=== PATIENT | female | born 1975 | race Caucasian/White ===

== ENCOUNTER 2016-05-06 11:42 | Day surgery (SDC) | payer BC ==
[2016-04-27 09:42] VITALS: BMI 42.0
--- NOTE | 2016-04-27 10:10 | PAT Medication Instructions ---
Service Date Apr 27, 2016. Current Home Medication List Control Pills ( Control Pills), 1 TAB PO DAILY Omeprazole (Prilosec), 20 MG PO DAILY PRN for STOMACH Tramadol (Ultram), 50 MG PO Q8H PRN for Pain Medication Instructions For Your Scheduled Surgery - Check with surgeon for instructions: Control Pills ( Control Pills), 1 TAB PO DAILY - Take the following medications the morning of surgery with a sip of water: Omeprazole (Prilosec), 20 MG PO DAILY PRN for STOMACH Tramadol (Ultram), 50 MG PO Q8H PRN for Pain (okay to take up to 4 hours prior to surgery if needed) - Take the following medications as scheduled the night before surgery: Omeprazole (Prilosec), 20 MG PO DAILY PRN for STOMACH Tramadol (Ultram), 50 MG PO Q8H PRN for Pain (if needed) If you have any questions please call us at [phone] (Summer Quesada PA-C) or [phone] or [phone]
[2016-04-27 10:47] LABS: BASO % 0.4 %; BASO ABS # 0.03 K/uL (0-0.2); COMPLETE YES; EOS % 1.9 %; HEMATOCRIT 42.8 % (37-47); IG% 0.1 %; LYMPH % 25.1 %; LYMPH ABS # 2.03 K/uL (1.2-3.4); MEAN CELL VOLUME 84.9 fL (80-100); MEAN CORPUSCULAR HEMOGLOBIN 30.2 pg (25-34); MEAN CORPUSCULAR HGB CONC 35.5 g/dl (32-36); MEAN PLATELET VOLUME 10.1 fL (7.4-10.4); MONO % 6.2 %; NEUT % 66.3 %; PLATELET COUNT 216 K/uL (130-400); RED BLOOD COUNT 5.04 M/uL (4.2-5.4); WHITE BLOOD COUNT 8.08 K/uL (4.8-10.8)
--- NOTE | 2016-04-27 10:49 | DIAGNOSTIC IMAGING REPORT ---
CHEST PREADMISSION(PA/LAT) CLINICAL HISTORY: Preoperative evaluation. COMPARISON STUDY: No previous studies for comparison. FINDINGS: Lung volumes are normal. The lungs are clear. There is no pneumothorax or pleural effusion. Cardiac size is normal. Mediastinal contours are normal. There is no evidence of pulmonary edema. IMPRESSION: No acute cardiopulmonary findings. Electronically signed by: Francis Pina M.D. 04/27/2016 10:47 AM Dictated Date/Time: 04/27/2016 10:47 AM
[2016-04-27 10:58] LABS: PARTIAL THROMBOPLASTIN RATIO 1.1; PROTHROMBIN TIME (PATIENT) 10.2 SECONDS (9.0-12.0)
[2016-04-27 11:05] LABS: BUN/CREATININE RATIO 13.9 (10-20); CALCIUM 9.1 mg/dl (8.5-10.1); CREATININE 0.76 mg/dl (0.60-1.20); POTASSIUM 4.1 mmol/L (3.5-5.1)
--- NOTE | 2016-05-05 19:48 | HISTORY & PHYSICAL EXAMINATION ---
DATE OF ADMISSION: 05/06/2016 HISTORY AND PHYSICAL ADMISSION NOTE CHIEF COMPLAINT: Left biceps tendonitis. 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 She has been dealing with anterior shoulder pain for over 6 months. I have given her injections in the biceps tendon which is taken care of all of her pain, but unfortunately the pain continues to return. She is having trouble sleeping at night and having trouble doing simple daily activities because of her shoulder pain. She is also losing a little bit of range of motion. I got an MRI of her shoulder which showed mild glenohumeral arthritis and biceps tendinitis. She elected to proceed with arthroscopy. PAST MEDICAL HISTORY: Significant for diabetes, hypothyroidism, sports-related asthma. MEDICATIONS: Include tramadol and omeprazole. PAST SURGICAL HISTORY: For appendectomy and knee surgery. ALLERGIES: PENICILLIN. FAMILY HISTORY: Noncontributory. SOCIAL HISTORY: She is with one child. Rarely drinks. Remains active. REVIEW OF SYSTEMS: The patient complains of left shoulder pain. All other pertinent review of systems are negative. PHYSICAL EXAMINATION: GENERAL: She is awake, alert and oriented x3. She is in no apparent distress. She is very pleasant. HEENT: Pupils are equal, round and reactive to light. Extraocular movements intact. Oral mucosa is pink and moist. VITAL SIGNS: Regular rate per radial pulse. LUNGS: Jailene symmetrically bilaterally with no audible breath sounds. ABDOMEN: Soft, nontender, nondistended. MUSCULOSKELETAL: On physical examination shoulder actively she initially has 90 degrees of forward elevation but later in the exam, I can get up to 130 degrees. She uses scapulothoracic motion at end range. She has slight limitations throughout range of motion but she does not exam like an adhesive capsulitis. Most of the pain is located along the biceps tendon. She has no pain over the AC joint, mild pain over the subacromial space. She does have some pain over both the anterior and posterior glenohumeral joint lines. IMAGING DATA: MRI of the shoulder does show mild arthritis and some posterior glenoid wear. The rotator cuff is intact. There is a small paralabral cyst in the spinoglenoid notch; there is also mild arthritis of the AC joint. IMPRESSION: 1. Biceps tendinitis of the left shoulder. 2. Mild osteoarthritis of the left shoulder. PLAN: Will proceed with a left shoulder arthroscopy to include decompression, biceps tenotomy and a chondroplasty. Postoperatively, she will be placed in an arm sling and discharged to home on oral pain medications. RAIN
[~2016-05-06] VITALS: Ht 177.8 cm; Wt 132.7 kg
[~2016-05-06 11:42] MED LIST: ACETAMINOPHEN 500 MG TAB PO SCH; ATROPINE SULFATE 0.1 MG/ML 5ML SYR IV PRN; BCPILLS PO; CLINDAMYCIN 600 MG/54 ML D5W 54 ML IV SCH; EpHEDrine SULFATE INJ 50 MG/ML AMP IV PRN; FAMOTIDINE 20 MG TAB PO SCH; FENTANYL CITRATE INJ 50 MCG/1 ML 2 ML VIAL IV PRN; GABAPENTIN 300 MG CAP PO SCH; HYDROmorphone INJ 1 MG/ML SYR IV PRN; LACTATED RINGER'S 1000ML 1,000 ML IV SCH; LACTATED RINGER'S 1000ML IV SCH; ONDANSETRON INJ 2 MG/ML 2 ML VIAL IV PRN; PRLSR20 PO; ROPIVACAINE 0.5% 5 MG/ML 30 ML VIAL ONE; TRAM-10 PO
--- NOTE | 2016-05-06 11:53 | History & Physical Bridge Note ---
H&P Re-Evaluation Bridge Note: I have examined the patient, reviewed the History & Physical and in the interval since the performance of the History & Physical I have noted the following changes of clinical significance: No changes noted
[2016-05-06 12:15] VITALS: BP 154/75; PULSE 74; TEMP 37; O2SAT 97; Ht 177.8 cm; Wt 132.7 kg
[2016-05-06] MEDS ORDERED: MIDAZOLAM HCL 1 MG/ML 2ML VIAL ONE (12:34)
[2016-05-06] MEDS ORDERED: FENTANYL CITRATE INJ 50 MCG/1 ML 2 ML VIAL ONE ×2 (12:34→15:27)
[2016-05-06] MEDS ORDERED: SCOPOLAMINE 1.5 MG TDSY TD ONE (13:44)
[2016-05-06] MEDS ORDERED: SCOPOLAMINE 1.5 MG TDSY TD SCH (13:45)
[2016-05-06] MEDS ORDERED: LIDOCAINE HCL 2% 2 ML VIAL (20MG/ML) ONE (14:35)
[2016-05-06] MEDS ORDERED: ONDANSETRON INJ 2 MG/ML 2 ML VIAL ONE (14:35)
[2016-05-06] MEDS ORDERED: PROPOFOL IV EMULSION 10 MG/ML 20 ML VIAL IV ONE ×2 (14:35→15:00)
[2016-05-06] MEDS ORDERED: DEXAMETHASONE SOD INJ 4 MG/ML VIAL ONE (14:35)
[2016-05-06] MEDS ORDERED: GLYCOPYRROLATE INJ 0.2 MG/ML VIAL ONE (14:35)
[2016-05-06] MEDS ORDERED: METOCLOPRAMIDE HCL INJ 5 MG/ML 2 ML VIAL ONE (14:35)
[2016-05-06] MEDS ORDERED: NEOSTIGMINE METHYLSULFATE 5 MG/5 ML SYR ONE (14:35)
[2016-05-06] MEDS ORDERED: ROCURONIUM BROMIDE 10 MG/ML 5 ML VIAL ONE (14:35)
[2016-05-06] MEDS ORDERED: BUPIVACAINE/EPINEPHRINE 0.5% MPF 1:200,000 30 ML VIAL INJ ONE (15:31)
[2016-05-06] MEDS ORDERED: KETO10TA PO (15:48)
[2016-05-06] MEDS ORDERED: OXYC-57 PO (15:48)
[2016-05-06] MEDS ORDERED: SODIUM CHLORIDE 0.9% 1000ML 1,000 ML IV SCH (15:49)
--- NOTE | 2016-05-06 15:49 | Discharge Instructions ---
Discharge Instructions Admission Reason for Admission: Left Shoulder Pain, Biceps Tendinitis, Degenerativ Discharge Discharge Diagnosis / Problem: SAME ABOVE Discharge Goals Goal(s): Decrease discomfort, Improve function Activity Recommendations Activity Limitations: as noted below Lifting Limitations: until after follow-up appointment Exercise/Sports Limitations: until after follow-up appointment Shower/Bathe: tomorrow Driving or Machine Use: WHEN OUT OF THE SLING AND OFF OF PAIN MEDICATION . Instructions / Follow-Up Instructions / Follow-Up MEDICATIONS: * Resume previous medications unless instructed otherwise by your surgeon. * Always take pain medication on a full stomach or with food to avoid upset stomach. * Do not drink alcohol or drive while taking narcotics. * Ibuprofen or Tylenol may be taken if narcotic not needed. SPECIAL CARE INSTRUCTIONS: __ None _X_ Keep extremity elevated and iced x 48 hours; apply ice 20-30 minutes 8-10 times/day. May remove at night. _X_ Sling (WEAR NEEDED FOR COMFORT) __24 hrs/day __ Remove at night __ Shoulder Immobilizer __ 24 hrs/day __ Remove at night _X_ Dressing __ Maintain until seen in office, may shower with plastic over site _X_ Remove dressings in 24-48 hours and then may shower _X_ Cover incisions with band-aids after showering _X_ Do not remove steri-strips (THEY MAY FALL OFF ON THEIR OWN) Call physician if chills or temperature rises above 102 degrees or pain unrelieved by prescribed pain medications at . . Current Hospital Diet Patient's current hospital diet: Discharge Diet Recommended Diet: Regular Diet Fluid Restriction: None Procedures Procedures Performed: Left Shoulder Arthroscopy Subacromial Decompression Bicep Tenotomy Pending Studies Studies pending at discharge: no Work Instructions Return To Work: after follow-up Lifting Limitations: NO LIFTING WITH LEFT ARM Medical Emergencies . Who to Call and When: Medical Emergencies: If at any time you feel your situation is an emergency, please call 911 immediately. . Non-Emergent Contact Non-Emergency issues call your: Primary Care Provider Call Non-Emergent contact if: you have a fever, temperature is above 101.5 . "Provider Documentation" section prepared by Jimmy Hobbs. VTE Core Measure Inpt VTE Proph given/why not?: Treatment not indicated
--- NOTE | 2016-05-06 15:49 | [facility] Post Operative Brief Note ---
Immediate Operative Summary Operative Date May 06, 2016. Pre-Operative Diagnosis Biceps tendonitis, mild osteoarthritis of left shoulder Post-Operative Diagnosis Biceps tendonitis, mild osteoarthritis of left shoulder Procedure(s) Performed Left Shoulder Arthroscopy Subacromial Decompression Bicep Tenotomy Surgeon Dr. Jang Motor Vehicle Light Assembler Surgeon(s) Jeremiah Hobbs PA-C Estimated Blood Loss 10 cc Findings as above Specimens none per surgeon Complication(s) None Disposition Recovery Room / PACU
[2016-05-06] MEDS ORDERED: OXYCODONE/ACETAMINOPHEN 5-325 TAB PO PRN ×2 (16:00)
[2016-05-06] MEDS ORDERED: ONDANSETRON INJ 2 MG/ML 2 ML VIAL IV PRN (16:00)
[2016-05-06] MEDS ORDERED: CHECK SCOPOLAMINE PATCH PLACEMENT SCH (16:00)
--- NOTE | 2016-05-06 16:17 | OPERATIVE REPORT ---
DATE OF OPERATION: 05/06/2016 PREOPERATIVE DIAGNOSIS: Biceps tendinopathy of the left shoulder with glenohumeral arthritis and paralabral cyst. POSTOPERATIVE DIAGNOSIS: Same. PROCEDURES: Left shoulder diagnostic arthroscopy with extensive debridement including excision of a paralabral cyst and chondroplasty of the glenohumeral joint with acromioplasty and open subpectoral biceps tenodesis. SURGEON: Dr. Rene Jang. AIR TABLE OPERATOR: Jimmy Hobbs PA-C, whose assistance was necessary for positioning the arm and helping with instrumentation. ANESTHESIA: General with a left interscalene nerve block. COMPLICATIONS: None. CONDITION: Stable to PACU. 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 She has been having mostly anterior shoulder pain. Injections over the biceps tendon have given her complete relief but they have not lasted long. I got an MRI. The MRI did show glenohumeral arthritis and a paralabral cyst. She elected to proceed with arthroscopy. DESCRIPTION OF PROCEDURE: On 05/06/2016, she arrived at [facility] for the above procedure. She was seen in the preoperative holding area and the operative extremity was identified and signed. She was given a preoperative antibiotic, taken back to the operating room, laid on the table in supine position and put under general anesthesia. She was then put into the beachchair position. The left shoulder was prepped and draped in sterile fashion. Time-out was done and the patient and operative extremity was properly identified. A scope was introduced in the posterior portal. Diagnostic arthroscopy showed grade 4 chondral changes to the posterior aspect of the glenoid and 1 cm diameter area of grade 4 chondral changes on the posterior central portion of the humeral head. There were some loose cartilage fragments. There was a lot of degenerative fraying of the labrum. The supraspinatus, infraspinatus, teres minor and subscapularis were all checked and intact. An anterior portal was made. A shaver was used to do a limited debridement of the intraarticular structures and the biceps tendon was arthroscopically tenotomized. The scope was then put into the subacromial space. A lateral portal was made. A shaver was used to do a complete subacromial and subdeltoid bursectomy. There were some signs of impingement, so the coracoacromial ligament was teased off the undersurface of the acromion and a 5-0 edwin was used to complete an acromioplasty of a Bigliani type 3 acromion. A shaver was used to remove any excess debris. The bursal side of the rotator cuff was examined extensively without evidence of tear. The scope was placed back into the glenohumeral joint. An extensive debridement was done behind the superior capsule to fully decompress a paralabral cyst. Once this was decompressed, arthroscopic instruments were removed from the shoulder. Attention was turned to an open biceps tenodesis. A small incision was made over the inferior border of pec major. Dissection was taken down through the fascia and the long head of the biceps tendon was delivered out of the wound. The tendon was then whipstitched at the anticipated level of tenodesis and the remainder of the tendon was discarded. A 6 mm hole was drilled in the bicipital groove and the biceps tendon was tenodesed with an Arthrex biceps button that was passed through the posterior cortex in a tension slide technique to deliver the tendon into the 6 mm hole. This gave good fixation. The wound was then irrigated and closed with 3-0 Vicryl and running 3-0 Monocryl. Steri-Strips were placed. Portal sites were closed with 3-0 nylon. She was then placed in a soft dressing and a regular arm sling. She was then extubated, transferred to [facility] and taken to the postanesthesia care unit in stable condition. She tolerated the procedure well. I attest to the content of the Intraoperative Record and any orders documented therein. Any exceptio ns are noted below.
--- NOTE | 2016-05-06 16:22 | Anesthesiology Progress Note ---
Anesthesia Post Op Note Date & Time May 06, 2016 at 16:22 Vital Signs Pain Intensity: 0 Vital Signs Past 12 Hours Date Time Temp Pulse Resp B/P Pulse Ox O2 Delivery O2 Flow Rate FiO2 05/06/16 16:17 63 16 95 05/06/16 16:17 62 16 05/06/16 16:13 145/89 05/06/16 16:12 69 16 95 05/06/16 16:12 68 16 05/06/16 16:11 64 25 96 05/06/16 16:11 64 25 05/06/16 16:08 145/82 05/06/16 16:06 55 15 05/06/16 16:06 58 15 100 05/06/16 16:05 57 16 05/06/16 16:05 57 16 100 05/06/16 16:05 57 16 100 05/06/16 16:05 57 16 05/06/16 16:03 148/74 05/06/16 16:03 148/74 05/06/16 16:00 72 16 100 05/06/16 16:00 72 16 100 05/06/16 16:00 71 16 05/06/16 16:00 71 16 05/06/16 15:58 136/92 05/06/16 15:58 136/92 05/06/16 15:55 58 15 05/06/16 15:55 59 15 100 05/06/16 15:55 58 15 05/06/16 15:55 59 15 100 05/06/16 15:53 151/92 05/06/16 15:53 151/92 05/06/16 15:50 57 18 100 05/06/16 15:50 57 18 05/06/16 15:50 57 18 05/06/16 15:50 57 18 100 05/06/16 15:50 36.1 56 15 144/86 100 Mask 10 05/06/16 12:15 37 74 18 154/75 97 Room Air Notes Mental Status: alert / awake / arousable, participated in evaluation Pt Amnestic to Procedure: Yes Nausea / Vomiting: adequately controlled Pain: adequately controlled Airway Patency, RR, SpO2: stable & adequate BP & HR: stable & adequate Hydration State: stable & adequate Anesthetic Complications: no major complications apparent
[2016-05-06 16:35] VITALS: BP 138/93; PULSE 67; TEMP 36.6; O2SAT 92
[2016-05-06 17:05] VITALS: BP 136/94; PULSE 79; O2SAT 93
[2016-05-06 17:35] VITALS: BP 142/87; PULSE 69; O2SAT 93
== END 2016-05-06 18:13 | disposition home or self-care (01) ==
LOC: C.ACU 11:42
PROVIDERS: ATTEND Orthopaedic Surgery
DX: M75.42 Impingement syndrome of left shoulder (principal); M19.019 Primary osteoarthritis, unspecified shoulder; M67.40 Ganglion, unspecified site; E11.9 Type 2 diabetes mellitus without complications; E03.9 Hypothyroidism, unspecified; J45.909 Unspecified asthma, uncomplicated; Z88.0 Allergy status to penicillin; Z90.49 Acquired absence of other specified parts of digestive tract; Z98.890 Other specified postprocedural states

== ENCOUNTER 2020-10-30 05:16 | Observation (INO) ==
--- NOTE | 2020-10-01 10:27 | PAT Medication Instructions ---
Medication Instructions Date of Service October 01, 2020 Home Medications Medication Instructions Recorded tramadol 50 mg tablet 50 mg PO Q6H PRN #20 tab 09/22/20 Control Pills 1 tab PO QPM tramadol 50 mg tablet 50 mg PO Q6H PRN Continue as directed Control Pills 1 tab PO QPM (unless surgeon directs otherwise) Take morning of surgery With a small sip of water, OTHERWISE NOTHING TO EAT OR DRINK AFTER MIDNIGHT: tramadol 50 mg tablet 50 mg PO Q6H PRN (okay to take up to 4 hours prior to surgery if needed) Take evening before surgery tramadol 50 mg tablet 50 mg PO Q6H PRN (if needed) Other Notes If you have any questions please call us at [phone] or [phone] or [phone] or [phone]
--- NOTE | 2020-10-06 11:40 | Anesthesiology Consultation ---
Date of Service October 06, 2020 Assessment & Plan (1) Encounter for pre-operative examination: Chart Review Chart Review: Acceptable Risk for Surgery (pending preop Covid testing results ) and Patient seen in Pre Admission Testing Discussed with Dr. Zhu- patient is approved from [facility] from anesthesia standpoint - Check test AM DOS Per PAT appt on 10/06/20, patient denies any recent travel. Pt does not wear mask in public but does avoid large crowds. Pt fully vaccinated for Covid. No known Covid positive contacts or Covid related symptoms. No known Covid in fection in the past 90 days. Preop Covid testing scheduled 10/28/20= will await results. Educated on importance of self quarantining, social distancing and wearing mask in public both for the patient after Covid testing done Teaching & Discussion Pre-Anesthesia Teaching/Discussion Notes: Instructed NPO after midnight before surgery,except medications with 15 cc of water. Medication instructions provided according to the PAT guidelines. History Surgery Operation Date: 10/30/20 09:20 Proposed Procedures p Left Total Shoulder Arthroplasty versus - Rene Jang DO s Total Shoulder Arthroplasty Reverse - Rene Jang DO Height/Weight Height: 5 ft 10 in Weight: 127.1 kg Allergies Allergy/AdvReac Type Severity Reaction Status Date / Time Penicillins Allergy Intermediate NAUSEA AND Verified 09/24/20 12:59 HIVES Medications Home Medications Medication Instructions Recorded Confirmed Last Taken Control Pills 1 tab PO QPM #0 02/25/11 09/24/20 Unknown tramadol 50 mg tablet 50 mg PO Q6H PRN #20 tab 09/22/20 09/24/20 Unknown Past Medical History Medical History (Updated 10/06/20 @ 12:04 by Betina Wang PA-C) Arthritis Graves disease No meds; per patient- PCP monitors No recent thyroid levels checked History of asthma NO INHALER- Exercise induced - well controlled and stable History of seizure AT AGE 20 (ONLY 1 EVENT); no medications needed- no issues since- was dx'ed with polycythemia vera shortly after seizure Hx gestational diabetes No current issues with glucose Migraine Polycythemia vera NO PROBLEMS FOR LAST 10 YEARS (MONITORED BY PCP) No recent phlebotomies Exercise / Class Metabolic Activity II 4-5 Yardwork/Stairs/Walk up hill (one flight of stairs - no chest pain or SOB ) Past Family History Family History Father Family history of diabetes mellitus Past Surgical History Surgical History Family history of reaction to anesthesia MOTHER-SLOW TO WAKE H/O shoulder surgery LEFT AND BICEP REPAIR History of appendectomy History of arthroscopy LEFT KNEE (PATELLA AND MENISCUS) History of tonsillectomy Slow to wake up after anesthesia [place] teeth removed Past Anesthesia History No Hx of Anesthesia Complications (with exception to slow to wake - just groggy- no reintubation or ICU stay ) and No Family Hx of Anesthesia Complications (with exception to mother- slow to wake - same as patient ) History of PONV History of PONV (occ- improved with anti-nausea medication ) and Hx of Motion Sickness Social History Smoking Status: Current every day smoker tobacco type: cigarettes Smoking cigarettes per day: 5-10 cigs/day Do You Dip or Chew Tobacco: No Hx Alcohol Use: No Hx Substance Use: No substance use type: does not use Review of Systems Hx of snoring with witnessed apnea - hx of sleep study many years ago- pt states no treatment needed. Patient denies chest pain, shortness of breath, dyspnea on exertion, reflux, cough, wheezing, palpitations. No hx of stroke, SD. No hx of blood clots or blood transfusions Physical Exam Vital Signs VITALS BP 123/87 P 76 TEMP 98.7 SP02 97% RESP 16 Constitutional no acute distress ENMT Mouth: no TMJ clicking Thyromental Distance: > or= 3.5 Finger Breadths (3.5) Mallampati Class: III Missing molars Neck neck extension not limited Respiratory normal respiratory effort; no respiratory distress Auscultation: lungs clear to auscultation bilaterally; no wheezes Cardiovascular Rate/Rhythm: regular rate and regular rhythm Heart Sounds: no murmur Vessels: no carotid bruit Musculoskeletal Spine: no pain with cervical ROM Extremities: extremities normal to inspection Psychiatric Orientation: alert Lab Results Anesthesia Preop Results Results Anesthesia Widget: WBC 9.80 K/uL (4.8-10.8) 10/06/20 Hgb 16.2 g/dL (12.0-16.0) H 10/06/20 Hct 47.4 % (37-47) H 10/06/20 Plt 234 K/uL (130-400) 10/06/20 Na 138 mmol/L (136-145) 10/06/20 K 4.0 mmol/L (3.5-5.1) 10/06/20 Cl 107 mmol/L (98-107) 10/06/20 CO2 27 mmol/L (21-32) 10/06/20 BUN 16 mg/dl (7-18) 10/06/20 Creat 0.70 mg/dl (0.6-1.2) 10/06/20 Glucose Level 92 mg/dl (70-99) 10/06/20 PT 9.8 Seconds (9.0-12.0) 10/06/20 PTT 27.2 Seconds (21.0-31.0) 10/06/20 INR 1.0 (0.9-1.1) 10/06/20 TSH 1.040 uIu/ml (0.300-4.500) 10/06/20 Blood Type O Negative 10/06/20 Antibody Screen NEGATIVE 10/06/20 Testing Electrocardiogram Date: 10/06/20 Findings: + NSR @ (71bpm) and + no change from (Apr 27, 2016) Normal EKG per cardio. Chest X-Ray Date: 10/06/20 Findings: + NAD
--- NOTE | 2020-10-29 11:03 | History & Physical Report ---
Date of Service October 29, 2020 Assessment & Plan (1) Osteoarthritis of left shoulder: We will proceed with a left total shoulder arthroplasty. Postoperatively she will be placed in a sling and discharged home on oral pain medications. She plans to use [facility] upon discharge. History of Present Illness Chief Complaint: Osteoarthritis of the left shoulder. Primary Care Provider: Brando Fagan MD Edita is a pleasant 45-year-old female whose been dealing with chronic worsening osteoarthritis of the left shoulder. I did a left shoulder arthroscopy on her in 2016 which gave minimal relief. Her symptoms have been worsening. After years of conservative treatment, she is elected proceed with a left total shoulder arthroplasty.. Allergies Allergy/AdvReac Type Severity Reaction Status Date / Time Penicillins Allergy Intermediate NAUSEA AND Verified 09/24/20 12:59 HIVES Home Medications Medication Instructions Recorded Confirmed Type Control Pills 1 tab PO QPM #0 02/25/11 09/24/20 History tramadol 50 mg tablet 50 mg PO Q6H PRN #20 tab 09/22/20 09/24/20 Rx Past Med/Surg History Medical History Arthritis Graves disease No meds; per patient- PCP monitors No recent thyroid levels checked History of asthma NO INHALER- Exercise induced - well controlled and stable History of seizure AT AGE 20 (ONLY 1 EVENT); no medications needed- no issues since- was dx'ed with polycythemia vera shortly after seizure Hx gestational diabetes No current issues with glucose Migraine Polycythemia vera NO PROBLEMS FOR LAST 10 YEARS (MONITORED BY PCP) No recent phlebotomies Surgical History Family history of reaction to anesthesia MOTHER-SLOW TO WAKE H/O shoulder surgery LEFT AND BICEP REPAIR History of appendectomy History of arthroscopy LEFT KNEE (PATELLA AND MENISCUS) History of tonsillectomy Slow to wake up after anesthesia [place] teeth removed Family History Father Family history of diabetes mellitus Social History Smoking Status: Current every day smoker Cigarettes Per Day: 5-10 cigs/day; Second Hand Exposure: No; Hx Alcohol Use: No Hx Substance Use: No Preferred Language: Italian Beliefs That Will Affect Care: None Current Living Situation: Family Feels Safe at Home: Yes Assistive Devices: Glasses Review of Systems All systems reviewed & are unremarkable except as noted in HPI & below. Physical Exam Physical examination of the left shoulder, she has forward elevation from 0 to 90 degrees. She has 5 5 motor strength throughout. She has pain over the glenohumeral joint line.. Constitutional WD/WN, vitals as above Eyes PERRL, conjunctivae normal, anicteric sclerae ENMT external ear and nose normal, oropharynx normal Neck trachea midline, no thyromegaly Respiratory normal respiratory effort Cardiovascular RRR, no murmur, no edema Gastrointestinal (Abdomen) normal bowel sounds, soft, nontender, no hepatosplenomegaly Psychiatric A+Ox3, euthymic affect Results & Data Results & Data Laboratory Results . Diagnostic Findings X-rays of the left shoulder show advanced osteoarthritis with joint space narrowing, osteophyte formation, and goid-mu-doal articulation. PG Care Time/CCT Total # of Minutes Spent Total Time Spent with Patient: Total time spent is greater than 50% in coordination of care (as documented) at patient's floor/unit and/or counseling patient: Coding Level of Care Code None Diagnoses Osteoarthritis of left shoulder M19.012
[2020-10-30] MEDS ORDERED: FAMOTIDINE 20 MG TAB PO SCH (06:00)
[2020-10-30] MEDS ORDERED: LR 60ML/HR IV SCH (06:00)
[2020-10-30] MEDS ORDERED: TRANEXAMIC ACID 1,000 MG **IV Pre-op IV SCH (06:00)
[2020-10-30] MEDS ORDERED: LR 15ML/HR IV SCH (06:00)
[2020-10-30] MEDS ORDERED: dexAMETHasone 4 MG TAB PO SCH (06:00)
[2020-10-30] MEDS ORDERED: ROPIVACAINE 0.5% HCL/PF 150 MG, BUPIVACAINE 0.75% MPF 20 ML, EPINEPHrine 30MG/30ML (OR ... INSTIL SCH (06:00)
[2020-10-30] MEDS ORDERED: GABAPENTIN 900 MG DOSE PO SCH (06:00)
[2020-10-30] MEDS ORDERED: TRANEXAMIC ACID 1,000 MG **IV Intra-op IV SCH (06:00)
[2020-10-30] MEDS ORDERED: ACETAMINOPHEN 500 MG TAB PO SCH (06:00)
[2020-10-30] MEDS ORDERED: BUPIVACAINE 0.5 % 5 MG/1 ML PF 10ML VIAL ONE (06:26)
[2020-10-30] MEDS ORDERED: fentaNYL citrate 100 MCG/2 ML VIAL ONE (06:38)
[2020-10-30] MEDS ORDERED: MIDAZOLAM HCL 1 MG/ML 2ML VIAL ONE (06:38)
--- NOTE | 2020-10-30 06:42 | History & Physical Bridge Note ---
Date of Service October 30, 2020 History & Physical Bridge Note I have examined the patient, reviewed the History & Physical and in the interval since the performance of the History & Physical I have noted the following changes of clinical significance: no changes noted
[2020-10-30] MEDS ORDERED: SCOPOLAMINE 1 MG TDSY TD ONE ×2 (06:50→07:30)
[2020-10-30] MEDS ORDERED: ORTHO JOINT ANESTHETIC ONE (06:50)
[2020-10-30] MEDS ORDERED: MEPERIDINE HCL 25 MG/ML CARP/VIAL IV PRN (07:15)
[2020-10-30] MEDS ORDERED: HYDROmorphone INJ 1 MG/ML SYRINGE IV PRN (07:15)
[2020-10-30] MEDS ORDERED: ePHEDrine sulfate 50 MG/ML AMP IV PRN (07:15)
[2020-10-30] MEDS ORDERED: fentaNYL citrate 100 MCG/2 ML VIAL IV PRN (07:15)
[2020-10-30] MEDS ORDERED: ATROPINE SULFATE 0.1 MG/ML 10ML SYR IV PRN (07:15)
[2020-10-30] MEDS ORDERED: ONDANSETRON INJ 2 MG/ML 2 ML VIAL IV PRN ×2 (07:15→14:46)
[2020-10-30] MEDS ORDERED: PHENYLEPHRINE 100MCG/ML 5ML SYR IV PRN (07:15)
[2020-10-30] MEDS ORDERED: LABETALOL HCL IV 5 MG/ML 20ML IV PRN (07:15)
[2020-10-30] MEDS ORDERED: SUGAMMADEX SODIUM 200 MG/2 ML VIAL IV ONE (07:50)
[2020-10-30] MEDS ORDERED: DEXAMETHASONE SOD INJ 4 MG/ML VIAL ONE (08:29)
[2020-10-30] MEDS ORDERED: ROCURONIUM BROMIDE 10 MG/ML 5 ML VIAL IV ONE (08:29)
[2020-10-30] MEDS ORDERED: GLYCOPYRROLATE 0.2 MG/ML VIAL ONE (08:29)
[2020-10-30] MEDS ORDERED: NEOSTIGMINE METHYLSULFATE 1 MG/ML 10ML VIAL ONE (08:29)
[2020-10-30] MEDS ORDERED: ONDANSETRON INJ 2 MG/ML 2 ML VIAL ONE (08:29)
[2020-10-30] MEDS ORDERED: PROPOFOL IV EMULSION 10 MG/ML 20 ML VIAL IV ONE (08:29)
[2020-10-30] MEDS ORDERED: LIDOCAINE 2% 2 ML VIAL/AMP(20MG/ML) INFIL ONE (08:30)
--- NOTE | 2020-10-30 08:30 | Operative Report ---
PG Post Operative Report Pre & Post Diagnosis Operation Date: 10/30/20 07:00 Pre-Op Diagnosis: Left Shoulder Osteoarthritis Post-Op Diagnosis: Left Shoulder Osteoarthritis I identified the patient and participated in the time-out.: Yes Procedure Operation Date: 10/30/20 07:00 Actual Procedures p Left Total Shoulder Arthroplasty, Cemented(Left) - Rene Jang DO Surgeon Rene Jang, Cutter Inspector Rene Hogan PAC Estimated Blood Loss 200 Findings Consistent with Post-Op Diagnosis Specimens Left humeral head Complications none Disposition Disposition: Recovery Room Indications Edita is a 45-year-old female who I did a left shoulder arthroscopy on in 2017. She did well with that. It did show some arthritis at the time. Unfortunate she is gone on to develop severe arthritis over the past 4 years. After failing conservative treatment, she has elected proceed with a left total shoulder arthroplasty. Description of Procedure Implants used: I used a [employer] Comprehensive total shoulder arthroplasty system with a size 12 press fit micro humeral stem, a size 46 x 18 eccentric humeral head, and a size 4 glenoid with a trabecular metal peg. The glenoid was cemented in place with Palacos G cement. Edita arrived at [facility] for the above procedure. She was seen in the preoperative holding area and the operative extremity was identified and signed. She was given a preoperative antibiotic, TXA, and an interscalene nerve block. She was taken back to the operating room, laid on table in supine position, and put under general anesthesia. She was then put into the beachchair position. The shoulder was then prepped and draped in sterile fashion. A timeout was done and the patient and the operative extremity was properly identified. A deltopectoral approach was used. Dissection was taken down through the fascia and the deltoid was retracted laterally and the conjoined tendon was retracted medially. The anterior shoulder was exposed. The biceps tendon was absent from a previous tenodesis.. The subscapularis was then released off the lesser tuberosity with a peel technique. The inferior capsule was released and the humeral head was dislocated. The rotator cuff was inspected and intact. A canal finding reamer was sent down the center of the humeral canal. Sequential reaming up to a size 12 reamer was done. Offset reamer a proximal humeral resection guide was placed. The proximal humerus was resected at 135 of inclination and 30 of retroversion. Inferior osteophytes were then removed and the glenoid was exposed. Time was spent doing an appropriate labral release. The glenoid measured to be a size 4. A 3.2 mm Steinmann pin was placed in the central hole of the glenoid vault pin guide. The glenoid was then reamed with a propeller reamer. The central post cutter was then used to prepare for the central boss. The cannulated peripheral peg drill guide was then placed and 3 peg holes were drilled. The final size 4 glenoid was then cemented in place with Palacos G cement. Surrounding soft tissues were then injected with 100 cc of an orthopedic pain control cocktail. Once cement had dried the proximal humerus was once again exposed. Sequential broaching of the humerus up to a size 12 broach was done. Off that broach a size 46 x 18 eccentric humeral head was trialed. The shoulder was then reduced, brought through a full range of motion, and felt to be stable. The shoulder was then dislocated and the broach was removed. The final size 12 micro humeral stem implant was then impacted into place. A size 46 x 18 eccentric humeral head was then impacted onto the humeral stem. The shoulder was then reduced and once again brought through a full range of motion and felt to be stable. The subscapularis was then tenodesed back to the lesser tuberosity with transosseous FiberWire sutures and side to side sutures with the arm in 45 of external rotation. 2 sutures were placed in the lateral rotator interval. A dilute betadyne lavage was then done for 3 minutes. The joint was then irrigated with normal saline solution. Hemostasis was obtained. The interval was closed with 2-0 Vicryl suture. The skin was closed with 2-0 Vicryl and lalitha. A Silverlon dressing was placed and the arm was rested in a regular arm sling. She was then extubated and transferred to a hospital bed. She was taken to the postanesthesia care unit in stable condition. She tolerated the procedure well. Rene Hogan PA-C, was present for the entire procedure. He was critical for patient positioning, prepping, draping, retraction exposure, wound closure and application of sterile dressing. I attest to the content of the Intraoperative Record and any orders documented therein. Any exceptions are noted below.
[2020-10-30] MEDS ORDERED: oxyCODONE/ACETAMINOPHEN 5mg/325mg TAB PO PRN (08:49)
--- NOTE | 2020-10-30 09:20 | Anesthesiology Progress Note ---
Date of Service October 30, 2020 Anesthesia Post Procedure Vital Signs Vital Signs: Temp Pulse Pulse Resp BP Pulse Ox 10/30/20 09:10 61 17 147/91 H 95 10/30/20 09:00 56 L 14 118/97 99 10/30/20 08:51 36.0 C L 57 L 12 130/97 97 10/30/20 06:04 36.7 C 66 18 162/81 H 96 Pain Intensity Left Shoulder: Pain Intensity: 1 Transfer of Care Handoff Completed per policy Notes Mental Status: alert / awake / arousable Patient Amnestic to Procedure: Yes Nausea / Vomiting: adequately controlled Pain: adequately controlled Airway Patency, RR, SpO2: stable & adequate BP & HR: stable & adequate Hydration State: stable & adequate Anesthetic Complications: no major complications apparent and Pt Satisfied with anesthetic care
--- NOTE | 2020-10-30 09:25 | XRay Report ---
XR shoulder LT min 2V routine CLINICAL HISTORY: Post shoulder surgery COMPARISON: 03/14/2017 DISCUSSION: There are postsurgical changes of a total left shoulder arthroplasty. There is no disloca tion. Overlying skin lalitha. Airspace opacities within the left lung base are likely atelectatic. IMPRESSION: Postsurgical changes of a total left shoulder arthroplasty. ACT 112: Negative or not required by law. Electronically signed by: Nico Pickering M.D. 10/30/2020 9:24 AM
[2020-10-30] MEDS ORDERED: METOCLOPRAMIDE HCL INJ 5 MG/ML 2 ML VIAL IV PRN (14:46)
[2020-10-30] MEDS ORDERED: MAGNESIUM HYDROXIDE SUSP 30 ML UDC PO PRN (14:46)
[2020-10-30] MEDS ORDERED: bisacodyL 10 MG SUPP PR PRN (14:46)
[2020-10-30] MEDS ORDERED: HYDROmorphone INJ 0.5 MG/0.5 ML SYR IV PRN (14:46)
[2020-10-30] MEDS ORDERED: SODIUM CHLORIDE 0.9% 1000ML 1,000 ML IV SCH (14:46)
[2020-10-30] MEDS ORDERED: NALOXONE HCL 0.4 MG/1 ML VIAL/CARP IV PRN (14:46)
[2020-10-30] MEDS ORDERED: oxyCODONE HCL IR 5 MG TAB (IMMEDIATE RELEASE) PO PRN (14:46)
[2020-10-30] MEDS: ceFAZolin 2000MG 2,000 MG/15 ML SYR IV SCH ×2 (15:56→23:20)
[2020-10-30] MEDS: ACETAMINOPHEN 500 MG TAB PO SCH ×2 (15:59→21:22)
[2020-10-30] MEDS: KETOROLAC 30 MG/ML VIAL IV SCH ×2 (15:59→21:22)
[2020-10-30] MEDS ORDERED: CHECK SCOPOLAMINE PATCH PLACEMENT SCH (16:00)
[2020-10-30] MEDS ORDERED: SENNA 8.6 MG TAB PO SCH (21:00)
[2020-10-30] MEDS: DOCUSATE SODIUM 100 MG CAP PO SCH (21:23)
[2020-10-31] MEDS: KETOROLAC 30 MG/ML VIAL IV SCH (03:09)
[2020-10-31] MEDS: ACETAMINOPHEN 500 MG TAB PO SCH (05:27)
[2020-10-31 07:31] VITALS: BP 104/51; PULSE 69; TEMP 98.8; O2SAT 93
--- NOTE | 2020-10-31 08:11 | Orthopedic Progress Note ---
Date of Service October 31, 2020 Assessment & Plan (1) Status post replacement of left shoulder joint: Overall she is doing very well. She is not having much pain in the left shoulder. She will be seen by physical therapy today for ambulation and range of motion exercises. She can be discharged home later today. She can follow-up with orthopedics in 2 weeks. Pa Kohler was seen and examined at bedside this morning. Overall she is doing very well. Her nausea has subsided. She was able to get some sleep last night. She has no pain and would like to go home.. Review of Systems All systems reviewed & are unremarkable except as noted in HPI & below. Physical Exam On physical examination of the left shoulder, the dressing is clean and dry. She is wearing her sling as instructed. Her radial, median, and ulnar nerves are checked intact at her wrist. Her axillary nerve was not checked yet.. Results & Data Results & Data Laboratory Results . Diagnostic Findings Postoperative x-rays of the left shoulder show the prosthesis to be in anatomic alignment without any evidence of fracture, dislocation, or loosening. PG Care Time/CCT Total # of Minutes Spent Total Time Spent with Patient: Total time spent is greater than 50% in coordination of care (as documented) at patient's floor/unit and/or counseling patient: Coding Level of Care Code 33105 Post Operative Follow-Up Diagnoses Status post replacement of left shoulder joint Z96.612
--- NOTE | 2020-10-31 08:13 | Discharge Summary ---
Date of Service October 31, 2020 Admission HPI (Per Admitting) Edita is a pleasant 45-year-old female whose been dealing with chronic worsening osteoarthritis of the left shoulder. I did a left shoulder arthroscopy on her in 2017 which gave minimal relief. Her symptoms have been worsening. After years of conservative treatment, she is elected proceed with a left total shoulder arthroplasty.. Admission Exam (Per Admitting) Physical examination of the left shoulder, she has forward elevation from 0 to 90 degrees. She has 5 5 motor strength throughout. She has pain over the glenohumeral joint line.. Principal Diagnosis Same as "Discharge Diagnosis" noted below under Discharge Instructions. Discharge Exam On physical examination of the left shoulder, the dressing is clean and dry. She is wearing her sling as instructed. Her radial, median, and ulnar nerves are checked intact at her wrist. Her axillary nerve was not checked yet.. Discharge Data Procedures Performed Operation Date: 10/30/20 07:00 Actual Procedures p Left Total Shoulder Arthroplasty, Cemented(Left) - Rene Jang DO Ordered Studies 10/30/20 05:00 [facility] ([facility] Status post replacement of left shoulder joint: On October 30, 2020 Edita arrived at [facility] and underwent a left shoulder replacement without complication. She had a general anesthetic and a left interscalene nerve block. Postoperatively she was placed in a sling and scheduled to be discharged home. Unfortunately she was dealing with some hypertension and nausea postoperatively. She was in the postanesthesia care unit for several hours. The decision was made to admit her overnight. On postop day #1 she was feeling much better. Her nausea has subsided and her vital signs were stable. She was seen by physical therapy and able to participate with ambulation and range of motion exercises. She was then discharged home. She will follow-up with orthopedics in 2 weeks. PG Care Time/CCT Total # of Minutes Spent Total Time Spent with Patient: Total time spent is greater than 50% in coordination of care (as documented) at patient's floor/unit and/or counseling patient: Discharge Plan Discharge Items Patient Disposition: Home - Home Health Services Reason For Visit: Left Shoulder Osteoarthritis Discharge Diagnosis: same as above Activity: Per Instructions section Non-emergency contact: Surgeon Call non-emergency contact if: your temperature is above 101.5, your wound has increased redness and your wound has increased drainage Follow-up/Referrals: [facility] [Outside] (as per surgeon's office) Brando Fagan MD [Primary Care Provider] - Diet: Regular Addtl Attending Provider Instructions: Activity and Therapy Recommendations: * If you are using [facility] then therapy will be provided at your home until they feel you have accomplished all of your goals. * If you are using [facility] then Physical Therapy will be provided until they feel you are ready to start Outpatient Physical Therapy. * If you are not using home therapy then Outpatient Physical Therapy should start about 3-5 days from your day of surgery. Therapy will last about 8-12 weeks * Wear your sling for 3 weeks, unless otherwise instructed. You may remove your sling to shower and to dress, but otherwise, you should be in your sling at all times, including while sleeping * The shoulder replacement is very stable and you can use your hand while in the sling * You were shown a series of exercises in the hospital. Do these exercises daily including the exercises you were shown in physical therapy. Medications: * Narcotic You will likely be sent home from the hospital with a prescription for the narcotic pain medication that worked best throughout your stay. * Other medications may be prescribed for specific circumstances. If you have any questions, please call the office at . * Resume previous home medications unless otherwise instructed Dressing Care: Leave the Silverlon dressing in place for 7 days. After 7 days you may remove the dressing. If the incision is not draining then you may leave the lalitha open to air. If there is a little bit of drainage or if the lalitha are getting stuck on your clothing then cover the incision with a dry dressing. The lalitha will be removed at your 2 week follow-up appointment. Showering: You may shower with the Silverlon dressing in place. Do not let the shower spray hit the dressing directly. Pat the Silverlon dressing dry. If the dressing becomes wet underneath, then simply remove the dressing. Keep the incision dry until you are 7 days out from the day of surgery. After 7 days you may remove the Silverlon dressing and shower with the lalitha exposed. Let soapy water run over the lalitha and pat them dry. Do not scrub or soak the incision. Things To Watch For: * Drainage from the incision site that occurs more than one week after your surgery. * Increased redness at the incision site. * Fever above 102 degrees Fahrenheit. * Unusual chest pain or shortness of breath. * Call [facility] at with any of the above problems Follow-Up Visit: Follow-up with Dr. Jang's PA (Rene Hogan) 2-3 weeks after your day of surgery. He will remove your lalitha and answer any questions. If you have any additional questions or concerns, Dr Jang is usually in the office at the same time and will be available An appointment was probably scheduled when you signed-up for surgery in the office. If you have any questions call More detailed instructions as well as Frequently Asked Questions were provided in a folder by our office when you signed-up for surgery. Please review these instructions when you get home. If you have any further questions or concerns, please feel free to call the office at [phone] Pending Studies at Discharge: No Stand-Alone Forms: Anesthesia/Sedation, Adult, My [facility], Smoking Cessation Medications and DC Order Prescriptions: New oxycodone-acetaminophen [Percocet] 5-325 mg tablet 1 tab PO Q6H PRN (Reason: pain) Qty: 30 RF: 0 Continued Control Pills tablet 1 tab PO QPM Qty: 0 RF: 0 Discontinued tramadol 50 mg tablet 50 mg PO Q6H PRN (Reason: pain) Qty: 20 RF: 0 Discharge Orders: Discharge Order (Routine); Ordered 10/31/20 Ordered By: Rene Mae/Other Patient Handouts: DVT Post Op Prevention Admission Data Admit Date/Time: 10/30/20 13:40 Attending Provider: Rene Jang Admit Provider: Rene Jang Primary Care Provider: Brando Fagan
[2020-10-31] MEDS: DOCUSATE SODIUM 100 MG CAP PO SCH (08:49)
[2020-10-31] MEDS ORDERED: MULTIVITAMIN TAB PO SCH (09:00)
== END 2020-10-31 10:51 | disposition home health service (06) ==
LOC: 3W 05:16 → ASU 05:16